=== PATIENT | female | born 1965 | race Caucasian/White ===

== ENCOUNTER 2023-09-03 08:15 | Day surgery (SDC) | payer OTHER ==
[~2023-09-03] VITALS: Ht 160 cm; Wt 73.5 kg
[2023-09-03] MEDS ORDERED: BENZOCAINE 20% 0.5mL UD SPRAY MM ONE (08:25)
[2023-09-03] MEDS ORDERED: MIDAZOLAM HCL 5 MG/5 ML VIAL ONE (08:25)
[2023-09-03] MEDS ORDERED: MEPERIDINE 100 MG INJ. 100 MG/ML VIAL ONE (08:25)
[2023-09-03 09:10] VITALS: O2SAT 98
[2023-09-03 11:05] VITALS: BP_SYST 105; PULSE 52; RESP 20; TEMP 97
== END 2023-09-03 11:00 | disposition home or self-care (01) ==
LOC: SDS 08:15 → SMU 08:19 → SDS 11:00
PROVIDERS: ATTEND Psychiatry & Neurology Psychiatry
DX: R12 Heartburn (principal); K29.50 Unspecified chronic gastritis without bleeding; B96.81 Helicobacter pylori [H. pylori] as the cause of diseases classified elsewhere; K20.90 Esophagitis, unspecified without bleeding; J45.909 Unspecified asthma, uncomplicated; Z79.899 Other long term (current) drug therapy
CPT/HCPCS: 43239; 88305; 88312; 88313; 99152; G0378; J2250; J2175